=== PATIENT | female | born 1940 | race Caucasian/White ===

== ENCOUNTER 2019-04-05 11:35 | Emergency (ER) | payer OTHER ==
[2019-04-05 11:58] VITALS: BP 138/64; PULSE 69; TEMP 98.6; BMI 29.9
[2019-04-05] MEDS ORDERED: IBUPROFEN 600 MG TABLET (FP) PO ONE ×2 (12:25→12:41)
--- NOTE | 2019-04-05 13:08 | PDOC ---
History of Present Illness - General Chief Complaint: Wound Stated Complaint: WOUND Time Seen by Provider: 04/05/19 12:20 History Source: Patient Exam Limitations: No Limitations - History of Present Illness Initial Comments: 04/05/19 12:37 78-year-old female with no history of diabetes presents to ED with the painful red bump to her left lower abdomen for the past 4 days without fever, chills or drainage. Patient denies recent travel, recent illness or recent outside work. Patient denies history of MRSA or immunosuppression. Timing/Duration: reports: other (4 days) Severity: Yes: mild Location: reports: torso Respiratory Risk Factors: reports: no cause identified Associated Symptoms: reports: edema, swelling/mass/lumps. denies: fever, malaise Past History - Travel Traveled outside of the country in the last 30 days: Yes - Past Medical History Allergies/Adverse Reactions: Allergies Allergy/AdvReac Type Severity Reaction Status Date / Time No Known Allergies Allergy Verified 04/05/19 11:57 Home Medications: Ambulatory Orders Beta-Carotene(A) W-C & E [Antioxidant] 1 each PO DAILY 11/22/11 Levothyroxine [Synthroid -] 175 mcg PO DAILY 11/22/11 Multiple Vitamin 1 tab PO DAILY 11/22/11 [place]-3 Fatty Acids/Fish Oil [[facility] Fish Oil 1,200 mg Softgel] 1 each PO DAILY 23/06 Simvastatin 40 mg PO DAILY 11/22/11 clonazePAM [Klonopin -] 0.5 mg PO BID 11/22/11 Amoxicillin/Potassium Clav [Augmentin 875-125 Tablet] 1 each PO BID #14 tablet 02/21/14 Acetaminophen W/ Codeine #3 [Tylenol # 3 -] 1 tab PO Q6H PRN #20 tablet Anemia: No Asthma: No Cancer: No Cardiac Disorders: No CVA: No COPD: No CHF: No Dementia: No Diabetes: No GI Disorders: No Disorders: No HTN: Yes Hypercholesterolemia: Yes Liver Disease: No Seizures: No Thyroid Disease: Yes - Surgical History Abdominal Surgery: Yes (removal of cyst left kidney) Appendectomy: No Cardiac Surgery: No Cholecystectomy: No Lung Surgery: No Neurologic Surgery: No Orthopedic Surgery: No - Immunization History Immunization Up to Date: Yes - Psycho Social/Smoking Cessation Hx Smoking History: Never smoked Have you smoked in the past 12 months: No If you are a former smoker, when did you quit?: 25 years ago Information on smoking cessation initiated: No Hx Alcohol Use: No Drug/Substance Use Hx: No Substance Use Type: None Hx Substance Use Treatment: No Patient Lives Alone: No Lives with/in: (son) Review of Systems - Review of Systems Able to Perform ROS?: No Is the patient limited Hungarian proficient: No Constitutional: No: Symptoms Reported HEENTM: No: Symptoms Reported Respiratory: No: Symptoms reported Cardiac (ROS): No: Symptoms Reported ABD/GI: No: Symptoms Reported : No: Symptoms Reported Musculoskeletal: No: Symptoms Reported Integumentary: Yes: Erythema, Lumps Neurological: No: Symptoms reported Endocrine: No: Symptoms Reported Hematologic/Lymphatic: No: Symptoms Reported *Physical Exam - Vital Signs Last Vital Signs Temp Pulse Resp BP Pulse Ox 98.6 F 69 18 138/64 95 04/05/19 11:55 04/05/19 11:55 04/05/19 11:55 04/05/19 11:55 04/05/19 11:55 - Physical Exam General Appearance: Yes: Nourished, Appropriately Dressed. No: Apparent Distress Neck: negative: Supple Respiratory/Chest: positive: Lungs Clear, Normal Breath Sounds. negative: Respiratory Distress, Accessory Muscle Use Cardiovascular: positive: Regular Rhythm, Regular Rate. negative: Murmur Gastrointestinal/Abdominal: positive: Soft, Tenderness (llq ) Integumentary: positive: Erythema (raised erythematous area to llq of the abdomen. Center with scab. No palpable fluctulence or increased warmth), Swelling, Other Neurologic: negative: Motor Strength 5/5 ED Treatment Course - RADIOLOGY Radiology Studies Ordered: Category Date Time Status SOFT TISSUE ABDOMEN US [US] Stat Ultrasound 04/05/19 12:24 Ordered - Medications Given in the ED: ED Medications Discontinued Medications Generic Name Dose Route Start Last Admin Trade Name Freq PRN Reason Stop Dose Admin Ibuprofen 600 mg 04/05/19 12:25 04/05/19 12:40 Motrin - PO 04/05/19 12:26 600 mg ONCE ONE Administration Medical Decision Making - Medical Decision Making 04/05/19 13:02 Chief complaint: Left lower quadrant painful bump for the past 4 days with no other complaints no history of diabetes or immunosuppression. Exam tender erythematous raised area to left lower quadrant measuring 4 x 2" with scabs to Center Plan: wound culture obtained by the deroofing scab and expressing minimal amount of purulent fluid. An ultrasound ordered and motrin ordered 04/05/19 13:52 Pt States feeling improvement after medication. Ultrasound report pending. 04/05/19 13:57 Ultrasound shows a tiny subcutaneous mass suspicious for developing abscess measuring 5 mm depth measuring 9 x 3 x 6 mm. Patient will be discharged home with Bactrim and strict instructions was given to the son and patient. Area was marked with a permanent marker which patient is aware if area becomes red beyond the black line despite taking antibiotics to return to the emergency room for IV antibiotics Discharge - Discharge Information Problems reviewed: Yes Clinical Impression/Diagnosis: Abdominal abscess Condition: Improved Disposition: HOME - Additional Discharge Information Prescription Drug Monitoring Program (I-STOP) results: I-STOP not reviewed - Follow up/Referral Referrals: Jerrica Vences MD [Primary Care Provider] - - Patient Discharge Instructions Patient Printed Discharge Instructions: DI for Skin Abscess Additional Instructions: Take antibiotics as prescribed until completed. May take Tylenol for discomfort. Apply hot warm soaks to the affected area 4 times a day for 15 minutes of constant heat to promote drainage if any. If symptoms do not improve in area reddens beyond the circled area please return back to the ER as this requires IV antibiotics - Post Discharge Activity
== END 2019-04-05 14:21 | disposition home or self-care (01) ==
LOC: JER 11:35 → SUPCPDRO 11:35 → JER 14:21
DX: L02.211 Cutaneous abscess of abdominal wall (principal); I10 Essential (primary) hypertension; E03.9 Hypothyroidism, unspecified; E78.00 Pure hypercholesterolemia, unspecified
CPT/HCPCS: 76705-TC; 87070; 87186; 87205; 99281-25

== ENCOUNTER 2019-04-26 11:59 | Emergency (ER) | payer OTHER ==
[2019-04-26 12:11] VITALS: BMI 30.7
--- NOTE | 2019-04-26 12:11 | PDOC ---
Rapid Medical Evaluation Time Seen by Provider: 04/26/19 12:07 Medical Evaluation: Allergies Allergy/AdvReac Type Severity Reaction Status Date / Time No Known Allergies Allergy Verified 04/05/19 11:57 04/26/19 12:07 I have performed a brief in-person evaluation of this patient. The patient presents with a chief complaint of: sent by PCP Marcieanti, burning/ painful red lesion to R abdomen, denies f/c/n/v/d. Seen 04/05 for similar. Hx HTN /HLD Pertinent physical exam findings: abscess/cellulitis to R abdomen I have ordered the following: nothing The patient will proceed to the ED for further evaluation. Discharge Disposition - Diagnosis Abscess - Discharge Dispostion Condition at time of disposition: Stable - Referrals - Patient Instructions - Post Discharge Activity
--- NOTE | 2019-04-26 12:28 | PDOC ---
History of Present Illness - General Chief Complaint: Wound Stated Complaint: REDNESS TO THE AFECTED AREA Time Seen by Provider: 04/26/19 12:07 History Source: Patient Exam Limitations: Language Barrier (djiboutian) - History of Present Illness Initial Comments: 04/26/19 12:28 Suellen Rodriguez is a 78yF w PMHx gastritis, constipation, HTN, HLD, hypothyroidism, presenting w LLQ wound. Has had worsening pain/erythema/growing LLQ wound for 2 weeks. Also complaining of mild epigastric pain starting last night. Denies trauma, travel, immunosuppression, drainage. Denies alcohol, smoking, illicit drugs. Last BM today. Was seen in the ED on 04/05 for LLQ abscess measuring 4 x 2", d/c home w bactrim. Denies fever, headache, nausea/ vomiting, SOB, chest pain, urinary changes. Past History - Past Medical History Allergies/Adverse Reactions: Allergies Allergy/AdvReac Type Severity Reaction Status Date / Time No Known Allergies Allergy Verified 04/05/19 11:57 Home Medications: Ambulatory Orders Beta-Carotene(A) W-C & E [Antioxidant] 1 each PO DAILY 11/22/11 Levothyroxine [Synthroid -] 175 mcg PO DAILY 11/22/11 Multiple Vitamin 1 tab PO DAILY 11/22/11 [place]-3 Fatty Acids/Fish Oil [[facility] Fish Oil 1,200 mg Softgel] 1 each PO DAILY 23/06 Simvastatin 40 mg PO DAILY 11/22/11 clonazePAM [Klonopin -] 0.5 mg PO BID 11/22/11 Amoxicillin/Potassium Clav [Augmentin 875-125 Tablet] 1 each PO BID #14 tablet 02/21/14 Acetaminophen W/ Codeine #3 [Tylenol # 3 -] 1 tab PO Q6H PRN #20 tablet Sulfamethoxazole/Trimethoprim [Bactrim Ds -] 1 tab PO BID #14 tablet 04/05/19 Sulfamethoxazole/Trimethoprim [Bactrim Ds -] 1 tab PO BID #14 tablet 04/26/19 Anemia: No Asthma: No Cancer: No Cardiac Disorders: No CVA: No COPD: No CHF: No Dementia: No Diabetes: No GI Disorders: No Disorders: No HTN: Yes Hypercholesterolemia: Yes Liver Disease: No Seizures: No Thyroid Disease: Yes - Surgical History Abdominal Surgery: Yes (removal of cyst left kidney) Appendectomy: No Cardiac Surgery: No Cholecystectomy: No Lung Surgery: No Neurologic Surgery: No Orthopedic Surgery: No - Immunization History Immunization Up to Date: Yes - Psycho Social/Smoking Cessation Hx Smoking History: Never smoked Have you smoked in the past 12 months: No If you are a former smoker, when did you quit?: 25 years ago Information on smoking cessation initiated: No Hx Alcohol Use: No Drug/Substance Use Hx: No Substance Use Type: None Hx Substance Use Treatment: No Review of Systems - Review of Systems Constitutional: No: Chills, Fever HEENTM: No: Eye Pain, Nose Pain, Throat Pain, Mouth Pain Respiratory: No: Cough, Shortness of Breath Cardiac (ROS): No: Chest Pain, Palpitations, Syncope ABD/GI: Yes: Constipated (chronic). No: Abdominal Distended, Diarrhea, Nausea, Vomiting : No: Burning, Dysuria, Discharge, Flank Pain, Hematuria Musculoskeletal: No: Back Pain, Joint Pain, Muscle Pain Integumentary: Yes: Lesions (2 lesions LLQ). No: Bruising, Flushing Neurological: No: Headache, Seizure, Tingling Psychiatric: No: Anxiety, Depression, Stressors Endocrine: No: Excessive Sweating, Flushing, Intolerance to Cold, Intolerance to Heat Hematologic/Lymphatic: No: Anemia, Blood Clots, Easy Bleeding *Physical Exam - Vital Signs Last Vital Signs Temp Pulse Resp BP Pulse Ox 98.5 F 74 16 174/69 H 96 04/26/19 12:08 04/26/19 12:08 04/26/19 12:08 04/26/19 12:08 04/26/19 12:08 - Physical Exam General Appearance: Yes: Nourished, Appropriately Dressed. No: Apparent Distress HEENT: positive: EOMI, JAVON, Normal Voice, Hearing Grossly Normal. negative: Scleral Icterus (R), Scleral Icterus (L), Nasal Congestion, Rhinorrhea Respiratory/Chest: positive: Lungs Clear, Normal Breath Sounds. negative: Chest Tender, Respiratory Distress, Crackles, Rales, Rhonchi, Stridor, Wheezing Cardiovascular: positive: Regular Rhythm, Regular Rate, S1, S2. negative: Edema , Murmur Gastrointestinal/Abdominal: positive: Normal Bowel Sounds, Tender (mild tenderness epigastric, LLQ over wound), Flat, Soft, Other (LLQ: 10x4cm warm/ erythematous/non-purulent or fluctuant wound w scab center, 6x2cm healed wound lateral to previous wound). negative: Organomegaly, Distended, Guarding, Rebound Musculoskeletal: negative: CVA Tenderness (R), CVA Tenderness (L) Extremity: positive: Normal Capillary Refill Integumentary: positive: Normal Color Neurologic: positive: Fully Oriented, Alert, Normal Response, Responsive. negative: Sensory Deficit, Confused, Disoriented ED Treatment Course - LABORATORY CBC & Chemistry Diagram: 04/26/19 13:24 04/26/19 13:24 Medical Decision Making - Medical Decision Making 04/26/19 13:00 CBC CMP trop lipase UA EKG CXR pepcid maalox tylenol for pain Bedside US shows 1x0.3cm fluid collection CXR shows clear lung devries EKG shows NSR, HR 68, QTc 433, no ST changes CBC CMP UA lipase normal, trop neg --- Suellen Rodriguez is a 78yF w PMHx gastritis, constipation, HTN, HLD, hypothyroidism, presenting w 2 week LLQ wound and 1d epigastric pain. Epigastric pain d/t gastritis vs reflux. No evidence of ACS (neg trop, NSR EKG) . LLQ wound ultrasound shows 1x0.3cm fluid collection, not big enough to be drained in ED. Afebrile. Last month wound culture grew staph aureus, susceptible to bactrim. Given pepcid maalox tylenol for pain. Given 1 dose bactrim. D/c home for abscess w Ds bactrim BID x7d (prior cultures grew s. aureus, susceptible to bactrim) and PCP f/u Discharge - Discharge Information Problems reviewed: Yes Clinical Impression/Diagnosis: Abscess, Epigastric pain Condition: Good Disposition: HOME - Admission No - Additional Discharge Information Prescriptions: Sulfamethoxazole/Trimethoprim [Bactrim Ds -] 1 tab PO BID #14 tablet - Follow up/Referral Referrals: Andie Altamirano MD [Primary Care Provider] - - Patient Discharge Instructions Patient Printed Discharge Instructions: DI for Skin Abscess Additional Instructions: You were seen for abdominal wound. Your labs and imaging do not show anything concerning. You were given antibiotics for your abscess. Please make an appointment with your primary care doctor regarding your wound. Take your prescribed Bactrim as directed on packaging. Come back to the ED if you have worsening infection, fever, or vomiting. - Post Discharge Activity
[2019-04-26] MEDS ORDERED: MAG HYDROX/AL HYDROX/SIMETH -MYLANTA- ORAL SUSPENSION PO ONE (12:44)
[2019-04-26] MEDS ORDERED: FAMOTIDINE 20 MG/50 ML IVPB 20 MG/50 ML MG IVPB ONE ×2 (12:44→14:32)
[2019-04-26] MEDS ORDERED: ACETAMINOPHEN 1000 MG/100 ML VIAL (NON FORMULARY) IVPB ONE (12:44)
[2019-04-26] MEDS ORDERED: MAG HYDROX/AL HYDROX/SIMETH 30 ML UNIT-DOSE CUP ONE (12:58)
[2019-04-26] MEDS ORDERED: ACETAMINOPHEN INJECTION 100 ML IVPB ONE (12:58)
[2019-04-26 13:34] LABS: BASO % 1.3 % (0-2.0); EOS % 1.7 % (0-4.5); HEMATOCRIT 40.1 % (32.4-45.2); HEMOGLOBIN 13.3 GM/dL (10.7-15.3); LYMPH % 27.8 % (8-40); MCHC 33.2 g/dl (32.0-36.0); MEAN CELL VOLUME 90.2 fl (80-96); MEAN PLT VOLUME 8.2 fl (7.5-11.1); MONO % 5.3 % (3.8-10.2); NEUT % 63.9 % (42.8-82.8); PLATELET COUNT 299 K/MM3 (134-434); RBC 4.45 M/mm3 (3.60-5.2); RDW 13.7 % (11.6-15.6); WHITE BLOOD COUNT 8.8 K/mm3 (4.0-10.0)
[2019-04-26 13:58] VITALS: BP 186/82; PULSE 68; TEMP 98.4
[2019-04-26 14:09] LABS: LIPASE 124 U/L (73-393)
[2019-04-26 14:14] LABS: ALBUMIN 4.1 g/dl (3.4-5.0); BILIRUBIN,TOTAL 0.4 mg/dL (0.2-1); BLOOD UREA NITROGEN 16.7 mg/dL (7-18); CALCIUM 9.7 mg/dL (8.5-10.1); CREATININE 0.6 mg/dL (0.55-1.3); POTASSIUM 4.8 mmol/L (3.5-5.1); TOT PROT 7.7 g/dl (6.4-8.2)
[2019-04-26 14:37] LABS: URINE APPEARANCE CLEAR; URINE BILIRUBIN NEGATIVE (NEGATIVE); URINE COLOR YELLOW; URINE GLUCOSE (UA) NEGATIVE (NEGATIVE); URINE KETONE NEGATIVE (NEGATIVE); URINE LEUK ESTERASE NEGATIVE (NEGATIVE); URINE NITRITE NEGATIVE (NEGATIVE); URINE PROTEIN NEGATIVE (NEGATIVE)
[2019-04-26] MEDS ORDERED: SULFAMETHOXAZOLE/TRIMETHOPRIM 800MG/160MG D.S. TABLET PO ONE (15:11)
[2019-04-26] MEDS ORDERED: SULFAMETHOXAZOLE/TRIMETHOPRIM 800MG/160MG D.S. TABLET ONE (15:19)
--- NOTE | 2019-04-26 15:20 | PDOC ---
Documentation entered by Cyndee Villanueva SCRIBE, acting as scribe for Balaji Beebe MD. Balaji Beebe MD: This documentation has been prepared by the Kay osn Adrianna, SCRIBE, under my direction and personally reviewed by me in its entirety. I confirm that the documentation accurately reflects all work, treatment, procedures, and medical decision making performed by me. Attending Attestation - Resident Resident Name: Ector Barry (]) - ED Attending Attestation I have performed the following: I have examined & evaluated the patient, The case was reviewed & discussed with the resident, I agree w/resident's findings & plan - HPI HPI: 04/26/19 15:17 78-year-old female history of hypertension, hypothyroidism, nondiabetic presents with second episode of left abdominal pimple/cellulitis. No fevers or chills, had initial lesion about 1 month ago which was treated with Bactrim successfully, now with second lesion that developed about 2 weeks ago with progressive redness and itching and discomfort. No fevers or chills, no drainage, no other complaints. - Physicial Exam PE: 04/26/19 15:17 Vital signs stable Blood pressure slightly elevated Heart is regular, lungs are clear, abdomen is soft/nontender/nondistended Along left lower abdominal wall, there is a 4 mm area of induration with a healed scab, and additional 8 to 10 cm of superficial cellulitis and warmth, slight tenderness to palpation, no active discharge. Bedside ultrasound shows no fluid pocket that is drainable. - Medical Decision Making 04/26/19 15:18 78-year-old female with Abdominal wall cellulitis and induration, no drainable abscess at this time. No systemic symptoms or signs, abdominal exam is benign. Labs are within normal limits EKG is normal Trial of oral antibiotics, strict return criteria regarding indications for incision and drainage and abscess development. Heart Score/ECG Review #1 ECG reviewed & interpreted by me at: 13:40 General ECG Interpretation: Sinus Rhythm, Normal Rate (68), Normal Intervals ( qtc 433, LVH), No acute ischemic changes
--- NOTE | 2019-04-27 12:55 | EKG ---
Test Reason : Blood Pressure : / mmHG Vent. Rate : 068 BPM Atrial Rate : 068 BPM P-R Int : 172 ms QRS Dur : 076 ms QT Int : 408 ms P-R-T Axes : 051 049 058 degrees QTc Int : 433 ms POOR DATA QUALITY, INTERPRETATION MAY BE ADVERSELY AFFECTED NORMAL SINUS RHYTHM MINIMAL VOLTAGE CRITERIA FOR LVH, MAY BE NORMAL VARIANT WHEN COMPARED WITH ECG OF 24-SEP-2017 20:45, NONSPECIFIC T WAVE ABNORMALITY NO LONGER EVIDENT IN ANTERIOR LEADS Confirmed by JOSE MENDEZ MD ([id number]) on 04/27/2019 12:55:00 PM Referred By: Confirmed By:JOSE MENDEZ MD
== END 2019-04-26 15:41 | disposition home or self-care (01) ==
LOC: JER 11:59
PROC: 3E033GC Introduction of Other Therapeutic Substance into Peripheral Vein, Percutaneous Approach (ICD-10-PCS; principal; 2019-04-26)
PROC: 3E033NZ Introduction of Analgesics, Hypnotics, Sedatives into Peripheral Vein, Percutaneous Approach (ICD-10-PCS; 2019-04-26)
PROC: BH49ZZZ Ultrasonography of Abdominal Wall (ICD-10-PCS; 2019-04-26)
DX: L02.211 Cutaneous abscess of abdominal wall (principal); R10.13 Epigastric pain; I10 Essential (primary) hypertension; E78.5 Hyperlipidemia, unspecified; E03.9 Hypothyroidism, unspecified
CPT/HCPCS: 36415; 71046-TC-FY; 80053; 81003; 82550; 83690; 84484; 85025; 87040; 87086; 93005; 93010; 99284-25; J0131

== ENCOUNTER 2019-05-12 13:02 | Emergency (ER) | payer OTHER ==
[2019-05-12 13:13] VITALS: BP 148/68; PULSE 74; TEMP 98.8; BMI 28.9
--- NOTE | 2019-05-12 14:25 | PDOC ---
History of Present Illness - General History Source: Patient, Family Exam Limitations: No Limitations <Marla Soto - Last Filed: 05/12/19 14:57> <Isabela Bolanos - Last Filed: 05/12/19 18:09> - General Chief Complaint: Wound Stated Complaint: WOUND INFECTION Time Seen by Provider: 05/12/19 13:10 Past History - Travel Traveled outside of the country in the last 30 days: No Close contact w/someone who was outside of country & ill: No - Past Medical History Anemia: No Asthma: No Cancer: No Cardiac Disorders: No CVA: No COPD: No CHF: No Dementia: No Diabetes: No GI Disorders: No Disorders: No HTN: Yes Hypercholesterolemia: Yes Liver Disease: No Seizures: No Thyroid Disease: Yes - Surgical History Abdominal Surgery: Yes (removal of cyst left kidney) Appendectomy: No Cardiac Surgery: No Cholecystectomy: No Lung Surgery: No Neurologic Surgery: No Orthopedic Surgery: No - Immunization History Immunization Up to Date: Yes - Psycho Social/Smoking Cessation Hx Smoking History: Never smoked Have you smoked in the past 12 months: No If you are a former smoker, when did you quit?: 25 years ago Hx Alcohol Use: No Drug/Substance Use Hx: No Substance Use Type: None Hx Substance Use Treatment: No <Marla Soto - Last Filed: 05/12/19 14:57> <Isabela Bolanos - Last Filed: 05/12/19 18:09> - Past Medical History Allergies/Adverse Reactions: Allergies Allergy/AdvReac Type Severity Reaction Status Date / Time No Known Allergies Allergy Verified 05/12/19 13:08 Home Medications: Ambulatory Orders Beta-Carotene(A) W-C & E [Antioxidant] 1 each PO DAILY 11/22/11 Levothyroxine [Synthroid -] 175 mcg PO DAILY 11/22/11 Multiple Vitamin 1 tab PO DAILY 11/22/11 Rosanky-3 Fatty Acids/Fish Oil [[facility] Fish Oil 1,200 mg Softgel] 1 each PO DAILY 23/06 Simvastatin 40 mg PO DAILY 11/22/11 clonazePAM [Klonopin -] 0.5 mg PO BID 11/22/11 Amoxicillin/Potassium Clav [Augmentin 875-125 Tablet] 1 each PO BID #14 tablet 02/21/14 Acetaminophen W/ Codeine #3 [Tylenol # 3 -] 1 tab PO Q6H PRN #20 tablet Sulfamethoxazole/Trimethoprim [Bactrim Ds -] 1 tab PO BID #14 tablet 04/05/19 Sulfamethoxazole/Trimethoprim [Bactrim Ds -] 1 tab PO BID #14 tablet 04/26/19 Review of Systems - Review of Systems Able to Perform ROS?: Yes Comments:: 05/12/19 14:57 CONSTITUTIONAL: Absent: fever, chills, diaphoresis, generalized weakness, malaise, loss of appetite HEENT: Absent: rhinorrhea, nasal congestion, throat pain, throat swelling, difficulty swallowing, mouth swelling, ear pain, eye pain, visual Changes CARDIOVASCULAR: Absent: chest pain, loss of consciousness, palpitations, irregular heart rate, peripheral edema RESPIRATORY: Absent: cough, shortness of breath, dyspnea with exertion, orthopnea, wheezing, stridor, hemoptysis GASTROINTESTINAL: Absent: abdominal pain, abdominal distension, nausea, vomiting, diarrhea, constipation, melena, hematochezia GENITOURINARY: Absent: dysuria, frequency, urgency, hesitancy, hematuria, flank pain, genital pain MUSCULOSKELETAL: Absent: myalgia, arthralgia, joint swelling SKIN: Present: abdominal wound Absent: rash, itching, pallor HEMATOLOGIC/IMMUNOLOGIC: Absent: easy bleeding, easy bruising, lymphadenopathy, frequent infections ENDOCRINE: Absent: unexplained weight gain, unexplained weight loss, heat intolerance, cold intolerance NEUROLOGIC: Absent: headache, focal weakness or paresthesias, dizziness, unsteady gait, seizure, mental status changes, bladder or bowel incontinence PSYCHIATRIC: Absent: anxiety, depression, suicidal or homicidal ideation, hallucinations. Is the patient limited [place] proficient: No <Marla Soto - Last Filed: 05/12/19 14:57> *Physical Exam - Vital Signs Last Vital Signs Temp Pulse Resp BP Pulse Ox 98.8 F 74 18 148/68 95 05/12/19 13:09 05/12/19 13:09 05/12/19 13:09 05/12/19 13:09 05/12/19 13:09 - Physical Exam Comments: 05/12/19 15:01 GENERAL: Well developed, well nourished. Awake and alert. No acute distress. HEENT: Normocephalic, atraumatic. PERRLA, EOMI. No conjunctival pallor. Sclera are non- icteric. Moist mucous membranes. Oropharynx is clear. NECK: Supple. Full ROM. No JVD. Carotid pulses 2+ and symmetric, without bruits. No thyromegaly. No lymphadenopathy. CARDIOVASCULAR: Regular rate and rhythm. No murmurs, rubs, or gallops. Distal pulses are 2+ and symmetric. PULMONARY: No evidence of respiratory distress. Lungs clear to auscultation bilaterally. No wheezing, rales or rhonchi. ABDOMINAL: Soft. Non-tender. Non-distended. No rebound or guarding. No organomegaly. Normoactive bowel sounds. MUSCULOSKELETAL Normal range of motion at all joints. No bony deformities or tenderness. No CVA tenderness. EXTREMITIES: No cyanosis. No clubbing. No edema. No calf tenderness. SKIN: 2 x 3 ovoid shaped wounds with eschar tissue, minimal purulent drainage noted. No active cellulitis at this time, skin changes noted to be more brown in nature. Warm and dry. Normal capillary refill. No jaundice. NEUROLOGICAL: Alert, awake, appropriate. Cranial nerves 2-12 intact. No deficits to light touch and temperature in face, upper extremities and lower extremities. No motor deficits in the in face, upper extremities and lower extremities. Normoreflexic in the upper and lower extremities. Normal speech. Toes are down- going bilaterally. Gait is normal without ataxia. PSYCHIATRIC: Cooperative. Good eye contact. Appropriate mood and affect. <Marla Soto - Last Filed: 05/12/19 14:57> - Vital Signs Last Vital Signs Temp Pulse Resp BP Pulse Ox 98.8 F 74 18 148/68 95 05/12/19 13:09 05/12/19 13:09 05/12/19 13:09 05/12/19 13:09 05/12/19 13:09 <Isabela Bolanos - Last Filed: 05/12/19 18:09> Medical Decision Making - Medical Decision Making 05/12/19 15:02 The patient is a 78-year-old female with past medical history of hypothyroidism , hypertension presents to the ER for evaluation of her abdominal wound. She states is been going on for approximately 1 month. She states that there was an abscess over that location previously. She is concerned that it is getting worse at this time. Denies fevers, diabetes history, nausea, vomiting and redness around the site. She is currently on Bactrim, which the bacteria is sensitive to per the last culture. A/P: Abdominal wound On exam patient with a 2 x 3 ovoid shaped wound to the left lower quadrant, minimal purulent drainage noted, white eschar coating the wound. Pocus soft tissue abdomen performed. Some cobblestoning noted, no obvious collection suggestive of abscess Skin with vascular changes however no active cellulitis. Encourage patient to continue her Bactrim. She states she is a follow-up with a surgeon on 05/18/2019. Strict return precautions given Discharge home with wound care instructions I discussed the physical exam findings, ancillary test results and final diagnoses with the patient. I answered all of the patient's questions. The patient was satisfied with the care received and felt comfortable with the discharge plan and treatment plan. The Patient agrees to follow up with the primary care physician/specialist within 24-72 hours. Return precautions were given. <Marla Soto - Last Filed: 05/12/19 14:57> - Medical Decision Making agree with PA assessment and plan, history and physical exam as documented. I was present for the ultrasound, soft tissue of left lower abdomen, small area of hypoechoic fluid, not drainable abscess, c/w cellulitis. see documentation wound cultures staph mssa, on bactrim, told to continue. surgeon followup in 1 week. 05/12/19 18:08 <Isabela Bolanos - Last Filed: 05/12/19 18:09> Discharge - Discharge Information Problems reviewed: Yes - Admission No <Marla Soto - Last Filed: 05/12/19 14:57> <Isabela Bolanos - Last Filed: 05/12/19 18:09> - Discharge Information Clinical Impression/Diagnosis: Chronic abdominal wound infection Qualifiers: Encounter type: initial encounter Qualified Code(s): S31.109A - Unspecified open wound of abdominal wall, unspecified quadrant without penetration into peritoneal cavity, initial encounter Condition: Stable Disposition: HOME - Follow up/Referral Referrals: Andie Altamirano MD [Primary Care Provider] - - Patient Discharge Instructions Patient Printed Discharge Instructions: DI for Wound Infection Additional Instructions: You were evaluated for your wound infection today; it does not appear immediately infected. Continue taking the bactrim as prescribed Keep your appointment with the surgeon for the 8th Keep the area clean and dry Return to the ER for fever, increased pain, vomiting, or if you have any changes in your symptoms Usted fue evaluado por cortez infeccin de la herida hoy; no aparece infectado de inmediato. Contine tomando el bactrim segn lo prescrito. Asista a cortez stuart con el cirujano el da 8. Mantenga el florencio limpia y seca. Regrese a la ingrid de emergencias por fiebre, aumento del dolor, vmitos o si tiene algn cambio en manuel sntomas. Print Language: ARMENIAN - Post Discharge Activity
== END 2019-05-12 14:41 | disposition home or self-care (01) ==
LOC: JER 13:02
DX: S31.104D Unspecified open wound of abdominal wall, left lower quadrant without penetration into peritoneal cavity, subsequent encounter (principal); Z79.2 Long term (current) use of antibiotics; I10 Essential (primary) hypertension; E78.5 Hyperlipidemia, unspecified; E78.00 Pure hypercholesterolemia, unspecified; E03.9 Hypothyroidism, unspecified; X58.XXXD Exposure to other specified factors, subsequent encounter
CPT/HCPCS: 76705-TC; 99282-25

== ENCOUNTER 2020-11-05 23:53 | Observation (INO) | payer OTHER ==
[2020-11-06] MEDS ORDERED: ASPIRIN 81 MG CHEWABLE TABLETS PO ONE (00:21)
[2020-11-06 00:29] VITALS: BMI 29.2
[2020-11-06] MEDS ORDERED: ASPIRIN 81 MG CHEWABLE TABLETS ONE (00:31)
[2020-11-06 01:02] LABS: BASO % 0.4 % (0-2.0); EOS % 0.9 % (0-4.5); HEMATOCRIT 38.6 % (32.4-45.2); HEMOGLOBIN 12.9 GM/dL (10.7-15.3); LYMPH % 40.4 % (8-40); MCHC 33.6 g/dl (32.0-36.0); MEAN CELL VOLUME 89.5 fl (80-96); MEAN PLT VOLUME 8.2 fl (7.5-11.1); MONO % 6.2 % (3.8-10.2); NEUT % 52.1 % (42.8-82.8); PLATELET COUNT 280 K/MM3 (134-434); RBC 4.31 M/mm3 (3.60-5.2); RDW 13.8 % (11.6-15.6); WHITE BLOOD COUNT 8.4 K/mm3 (4.0-10.0)
[2020-11-06 01:10] LABS: INR 0.97 (0.83-1.09); PROTHROMBIN TIME (PATIENT) 11.9 SEC (9.7-13.0)
[2020-11-06 01:17] LABS: CHLORIDE 108 mmol/L (98-107); SODIUM 140 mmol/L (136-145)
[2020-11-06 01:19] LABS: CALCIUM 9.2 mg/dL (8.5-10.1)
[2020-11-06 01:21] LABS: ANION GAP 6 MMOL/L (8-16); BLOOD UREA NITROGEN 20.6 mg/dL (7-18); CO2 26 mmol/L (21-32); GLUCOSE,RANDOM 99 mg/dL (74-106); MAGNESIUM 2.6 mg/dL (1.8-2.4)
[2020-11-06 01:24] LABS: BILIRUBIN,TOTAL 0.4 mg/dL (0.2-1); CREATININE 0.9 mg/dL (0.55-1.3); SGOT/AST 20 U/L (15-37); SGPT/ALT 24 U/L (13-61)
[2020-11-06 01:26] LABS: ALK PHOS 81 U/L (45-117); TOT PROT 7.6 g/dl (6.4-8.2)
[2020-11-06 02:36] LABS: EPI CELLS 3 /uL (0-25.1); HYALINE CASTS 0 /uL (0-3.1); PH,URINE 5.5 (5.0-8.0); URINE APPEARANCE CLEAR; URINE BACTERIA 4 /uL (0-1359); URINE BILIRUBIN NEGATIVE (NEGATIVE); URINE COLOR YELLOW; URINE GLUCOSE (UA) NEGATIVE (NEGATIVE); URINE KETONE NEGATIVE (NEGATIVE); URINE LEUK ESTERASE TRACE (NEGATIVE); URINE NITRITE NEGATIVE (NEGATIVE); URINE PROTEIN NEGATIVE (NEGATIVE); URINE RBC 3 /uL (0-23.9); URINE UROBILINOGEN 0.2 mg/dL (0.2-1.0); URINE WBC 16 /uL (0-25.8)
[2020-11-06] MEDS ORDERED: TETRAHYDROZOLINE HCL EYE DROPS OD PRN (04:17)
[2020-11-06] MEDS ORDERED: SODIUM CHLORIDE 1,000 ML IV SCH (04:30)
[2020-11-06] MEDS ORDERED: ARTIFICIAL TEARS (POLYVINYL ALCOHOL) OPTH DROPS OU PRN (05:06)
[2020-11-06] MEDS ORDERED: GABAPENTIN 100 MG CAPSULE ONE ×2 (06:03→14:26)
[2020-11-06] MEDS: GABAPENTIN 100 MG CAPSULE PO SCH ×2 (06:15→14:30)
[2020-11-06 06:41] LABS: HEMATOCRIT 38.7 % (32.4-45.2); MCH 30.3 pg (25.7-33.7); MCHC 33.7 g/dl (32.0-36.0); MEAN CELL VOLUME 89.8 fl (80-96); MEAN PLT VOLUME 8.2 fl (7.5-11.1); PLATELET COUNT 261 K/MM3 (134-434); WHITE BLOOD COUNT 7.8 K/mm3 (4.0-10.0)
[2020-11-06] MEDS ORDERED: LEVOTHYROXINE NA 112 MCG TABLET (FP) PO SCH (07:00)
[2020-11-06 07:04] LABS: CHLORIDE 108 mmol/L (98-107); SODIUM 140 mmol/L (136-145)
[2020-11-06 07:06] LABS: ANION GAP 4 MMOL/L (8-16); BLOOD UREA NITROGEN 15.8 mg/dL (7-18); CALCIUM 9.4 mg/dL (8.5-10.1); CHOLESTEROL 228 mg/dL (50-200); CO2 28 mmol/L (21-32); GLUCOSE,RANDOM 108 mg/dL (74-106); MAGNESIUM 2.6 mg/dL (1.8-2.4)
[2020-11-06 07:08] LABS: LDL CHOLESTEROL (ONLY SJRH) 138 mg/dL (5-100); TRIGLYCERIDES 76 mg/dL (0-150)
[2020-11-06 07:10] LABS: CREATININE 0.6 mg/dL (0.55-1.3); HDL CHOLESTEROL 65 mg/dL (40-60); PHOSPHOROUS 3.5 mg/dL (2.5-4.9)
[2020-11-06] MEDS ORDERED: ASPIRIN COATED 81 MG TABLET.EC ONE (09:21)
[2020-11-06] MEDS ORDERED: LISINOPRIL 5 MG TABLET ONE (09:22)
[2020-11-06] MEDS ORDERED: ENOXAPARIN NA (PORCINE) 40 MG/0.4 ML DISP.SYRIN SQ ONE (09:22)
[2020-11-06] MEDS ORDERED: PANTOPRAZOLE 40 MG TABLET ONE (09:23)
[2020-11-06] MEDS ORDERED: ASPIRIN 81 MG CHEWABLE TABLETS PO SCH (10:00)
[2020-11-06] MEDS ORDERED: ENOXAPARIN NA (PORCINE) 40 MG/0.4 ML DISP.SYRIN SQ SCH (10:00)
[2020-11-06] MEDS ORDERED: LISINOPRIL 5 MG TABLET PO SCH (10:00)
[2020-11-06] MEDS ORDERED: PANTOPRAZOLE 40 MG TABLET PO SCH (10:00)
[2020-11-06 15:44] VITALS: BP 138/82; PULSE 77; TEMP 98.4
[2020-11-06] MEDS ORDERED: ATORVASTATIN CA 20 MG TABLET (FP) PO SCH (22:00)
== END 2020-11-06 15:20 | disposition home or self-care (01) ==
LOC: JER 23:53 → JERBED 11-06 02:01 → INTOOBSV 11-06 02:01
PROVIDERS: ADMIT Internal Medicine; ATTEND Student in an Organized Health Care Education/Training Program
PROC: 3E023GC Introduction of Other Therapeutic Substance into Muscle, Percutaneous Approach (ICD-10-PCS; principal; 2020-11-06)
PROC: 3E0337Z Introduction of Electrolytic and Water Balance Substance into Peripheral Vein, Percutaneous Approach (ICD-10-PCS; 2020-11-06)
DX: I10 Essential (primary) hypertension (principal); J45.909 Unspecified asthma, uncomplicated; E78.5 Hyperlipidemia, unspecified; E03.9 Hypothyroidism, unspecified; R07.89 Other chest pain; K29.70 Gastritis, unspecified, without bleeding; R00.2 Palpitations; R22.40 Localized swelling, mass and lump, unspecified lower limb; E66.3 Overweight; Z68.29 Body mass index [BMI] 29.0-29.9, adult; Z29.9 Encounter for prophylactic measures, unspecified; H40.9 Unspecified glaucoma; L29.9 Pruritus, unspecified; R55 Syncope and collapse; R63.0 Anorexia
CPT/HCPCS: 36415; 71046-TC-FY; 80048; 80053; 80061; 81003; 82550; 83036; 83721; 83735; 84100; 84443; 84484; 85025; 85027; 85610; 86038; 86235; 86431; 93005; 93010; 96360; 96372; 97116-GP; 97161-GP; 99285-25; C9803; G0378; U0003; U0005

== ENCOUNTER 2020-11-13 23:59 | Emergency (ER) | payer OTHER ==
[2020-11-14 00:16] VITALS: BMI 29.2
[2020-11-14] MEDS ORDERED: FAMOTIDINE 20 MG/50 ML IVPB 20 MG/50 ML MG IVPB ONE ×2 (01:01→01:33)
[2020-11-14] MEDS ORDERED: MAG HYDROX/AL HYDROX/SIMETH 30 ML UNIT-DOSE CUP PO ONE (01:01)
[2020-11-14] MEDS ORDERED: ACETAMINOPHEN 325 MG TABLET (FP) PO ONE (01:01)
[2020-11-14] MEDS ORDERED: MAG HYDROX/AL HYDROX/SIMETH 30 ML UNIT-DOSE CUP ONE (01:33)
[2020-11-14] MEDS ORDERED: ACETAMINOPHEN 325 MG TABLET (FP) ONE (01:33)
[2020-11-14 02:13] LABS: BASO % 0.5 % (0-2.0); EOS % 0.6 % (0-4.5); HEMATOCRIT 38.3 % (32.4-45.2); HEMOGLOBIN 13.2 GM/dL (10.7-15.3); LYMPH % 36.4 % (8-40); MCH 30.8 pg (25.7-33.7); MCHC 34.5 g/dl (32.0-36.0); MEAN CELL VOLUME 89.3 fl (80-96); MEAN PLT VOLUME 8.2 fl (7.5-11.1); MONO % 6.4 % (3.8-10.2); NEUT % 56.1 % (42.8-82.8); PLATELET COUNT 302 K/MM3 (134-434); RBC 4.28 M/mm3 (3.60-5.2); RDW 13.8 % (11.6-15.6); WHITE BLOOD COUNT 8.8 K/mm3 (4.0-10.0)
[2020-11-14 02:27] LABS: CHLORIDE 107 mmol/L (98-107); SODIUM 140 mmol/L (136-145)
[2020-11-14 02:30] LABS: CALCIUM 8.9 mg/dL (8.5-10.1)
[2020-11-14 02:31] LABS: ALBUMIN 4.2 g/dl (3.4-5.0); ANION GAP 8 MMOL/L (8-16); BLOOD UREA NITROGEN 18.2 mg/dL (7-18); CO2 26 mmol/L (21-32); GLUCOSE,RANDOM 107 mg/dL (74-106); LIPASE 143 U/L (73-393)
[2020-11-14 02:32] LABS: CREATININE 0.6 mg/dL (0.55-1.3); SGOT/AST 23 U/L (15-37); SGPT/ALT 26 U/L (13-61)
[2020-11-14 02:34] LABS: BILIRUBIN,TOTAL 0.4 mg/dL (0.2-1); TOT PROT 7.5 g/dl (6.4-8.2)
[2020-11-14 02:35] LABS: ALK PHOS 84 U/L (45-117)
[2020-11-14] MEDS ORDERED: LIDOCAINE VISCOUS 2% ORAL/TOP 20 ML UNIT-DOSE CUP MM ONE (03:39)
[2020-11-14] MEDS ORDERED: MAG HYDROX/ALH/SMC/DPHA/LIDO 240 ML MOUTHWASH MM ONE (03:40)
[2020-11-14] MEDS ORDERED: LIDOCAINE VISCOUS 2% ORAL/TOP 20 ML UNIT-DOSE CUP ONE (03:56)
[2020-11-14 07:46] VITALS: BP 152/98; PULSE 69; TEMP 98.1
== END 2020-11-14 08:40 | disposition home or self-care (01) ==
LOC: JER 23:59
PROC: 3E033NZ Introduction of Analgesics, Hypnotics, Sedatives into Peripheral Vein, Percutaneous Approach (ICD-10-PCS; principal; 2020-11-14)
DX: R07.9 Chest pain, unspecified (principal)
CPT/HCPCS: 36415; 71045-TC-FY; 80053; 83690; 84484; 85025; 93005; 93010; 99285-25

== ENCOUNTER 2021-03-30 21:04 | Inpatient (IN) | payer OTHER ==
[2021-03-30] MEDS ORDERED: SODIUM CHLORIDE 0.9% 500 ML INFUS.BAG IV ONE (22:52)
[2021-03-30] MEDS ORDERED: ACETAMINOPHEN 1000 MG/100 ML VIAL (NON FORMULARY) IVPB ONE (22:52)
[2021-03-30] MEDS ORDERED: ACETAMINOPHEN INJECTION 100 ML IVPB ONE (23:01)
[2021-03-30 23:31] LABS: BASO % 0.2 % (0-2.0); EOS % 0.6 % (0-4.5); HEMATOCRIT 41.3 % (32.4-45.2); LYMPH % 27.3 % (8-40); MCH 29.9 pg (25.7-33.7); MCHC 33.8 g/dl (32.0-36.0); MEAN CELL VOLUME 88.6 fl (80-96); MEAN PLT VOLUME 7.4 fl (7.5-11.1); MONO % 6.1 % (3.8-10.2); NEUT % 65.8 % (42.8-82.8); PLATELET COUNT 328 10^3/uL (134-434); RBC 4.66 M/mm3 (3.60-5.2); WHITE BLOOD COUNT 12.3 K/mm3 (4.0-10.0)
[2021-03-30 23:53] LABS: CHLORIDE 104 mmol/L (98-107); SODIUM 141 mmol/L (136-145)
[2021-03-30 23:55] LABS: CALCIUM 9.1 mg/dL (8.5-10.1)
[2021-03-30 23:56] LABS: ANION GAP 5 MMOL/L (8-16); BLOOD UREA NITROGEN 12.1 mg/dL (7-18); CO2 32 mmol/L (21-32); GLUCOSE,RANDOM 111 mg/dL (74-106); LIPASE 72 U/L (73-393)
[2021-03-30 23:59] LABS: CREATININE 0.6 mg/dL (0.55-1.3); SGOT/AST 22 U/L (15-37); SGPT/ALT 34 U/L (13-61)
[2021-03-31] LABS: BILIRUBIN,TOTAL 0.6 mg/dL (0.2-1); TOT PROT 7.9 g/dl (6.4-8.2)
[2021-03-31 00:02] LABS: ALK PHOS 82 U/L (45-117)
[2021-03-31] MEDS ORDERED: CEFTRIAXONE 1,000 MG in DEXTROSE 5%-WATER - 50 ML IVPB ONE (01:27)
[2021-03-31] MEDS ORDERED: CEFTRIAXONE 1 GM/50 ML BAG ONE (01:42)
[2021-03-31 03:20] LABS: PH,URINE 7.5 (5.0-8.0); URINE APPEARANCE CLEAR; URINE BILIRUBIN NEGATIVE (NEGATIVE); URINE COLOR YELLOW; URINE GLUCOSE (UA) NEGATIVE (NEGATIVE); URINE KETONE NEGATIVE (NEGATIVE); URINE LEUK ESTERASE NEGATIVE (NEGATIVE); URINE NITRITE NEGATIVE (NEGATIVE); URINE PROTEIN NEGATIVE (NEGATIVE); URINE UROBILINOGEN 0.2 mg/dL (0.2-1.0)
[2021-03-31] MEDS: LACTATED RINGERS SOLUTION 1,000 ML/1,000 ML INFUS.BAG IV SCH (05:09)
[2021-03-31] MEDS ORDERED: SIMETHICONE 80 MG TAB.CHEW (FP) PO PRN ×2 (05:48→08:40)
[2021-03-31] MEDS ORDERED: ARTIFICIAL TEARS (POLYVINYL ALCOHOL) OPTH DROPS OU PRN (06:38)
[2021-03-31 07:08] LABS: BASO % 0.3 % (0-2.0); EOS % 0.6 % (0-4.5); HEMATOCRIT 39.5 % (32.4-45.2); HEMOGLOBIN 13.5 GM/dL (10.7-15.3); LYMPH % 35.5 % (8-40); MCH 30.8 pg (25.7-33.7); MCHC 34.1 g/dl (32.0-36.0); MEAN CELL VOLUME 90.1 fl (80-96); MEAN PLT VOLUME 7.9 fl (7.5-11.1); MONO % 6.1 % (3.8-10.2); NEUT % 57.5 % (42.8-82.8); PLATELET COUNT 311 10^3/uL (134-434); RBC 4.38 M/mm3 (3.60-5.2); RDW 13.9 % (11.6-15.6); WHITE BLOOD COUNT 9.8 K/mm3 (4.0-10.0)
[2021-03-31 07:27] LABS: CALCIUM 8.6 mg/dL (8.5-10.1)
[2021-03-31 07:28] LABS: ALBUMIN 3.6 g/dl (3.4-5.0); BLOOD UREA NITROGEN 10.1 mg/dL (7-18)
[2021-03-31 07:32] LABS: BILIRUBIN,TOTAL 0.7 mg/dL (0.2-1)
[2021-03-31 07:33] LABS: CREATININE 0.5 mg/dL (0.55-1.3)
[2021-03-31] MEDS: LEVOTHYROXINE NA 112 MCG TABLET (FP) PO SCH (09:00)
[2021-03-31] MEDS ORDERED: LISINOPRIL 5 MG TABLET ONE (10:28)
[2021-03-31] MEDS ORDERED: ENOXAPARIN NA (PORCINE) 40 MG/0.4 ML DISP.SYRIN SQ ONE (10:29)
[2021-03-31] MEDS ORDERED: CEFTRIAXONE 2 GM/100 ML BAG IVPB ONE (10:29)
[2021-03-31] MEDS: CEFTRIAXONE 2 GM in DEXTROSE 5%-WATER 100 ML IVPB SCH (10:56)
[2021-03-31] MEDS: LISINOPRIL 10 MG TABLET PO SCH (10:56)
[2021-03-31] MEDS: ENOXAPARIN NA (PORCINE) 40 MG/0.4 ML DISP.SYRIN SQ SCH (10:56)
[2021-03-31] MEDS ORDERED: MAG HYDROX/AL HYDROX/SIMETH 30 ML UNIT-DOSE CUP PO PRN (11:05)
[2021-03-31] MEDS ORDERED: GABAPENTIN 100 MG CAPSULE ONE (14:01)
[2021-03-31] MEDS: GABAPENTIN 100 MG CAPSULE PO SCH ×2 (14:04→23:01)
[2021-03-31] MEDS: ATORVASTATIN CA 20 MG TABLET (FP) PO SCH (23:01)
[2021-04-01 00:06] VITALS: BMI 31.6
[2021-04-01] MEDS: LACTATED RINGERS SOLUTION 1,000 ML/1,000 ML INFUS.BAG IV SCH ×2 (00:16→10:51)
[2021-04-01] MEDS: ZOLPIDEM TARTRATE 5 MG TABLET PO PRN ×2 (00:16→21:35)
[2021-04-01] MEDS: GABAPENTIN 100 MG CAPSULE PO SCH ×2 (06:05→15:12)
[2021-04-01] MEDS: LEVOTHYROXINE NA 112 MCG TABLET (FP) PO SCH (06:05)
[2021-04-01 07:31] LABS: BASO % 0.3 % (0-2.0); EOS % 1.6 % (0-4.5); HEMATOCRIT 35.8 % (32.4-45.2); HEMOGLOBIN 12.2 GM/dL (10.7-15.3); LYMPH % 39.4 % (8-40); MCH 30.9 pg (25.7-33.7); MCHC 34.3 g/dl (32.0-36.0); MEAN CELL VOLUME 90.1 fl (80-96); MEAN PLT VOLUME 7.9 fl (7.5-11.1); MONO % 6.9 % (3.8-10.2); NEUT % 51.8 % (42.8-82.8); PLATELET COUNT 287 10^3/uL (134-434); RBC 3.97 M/mm3 (3.60-5.2); RDW 13.7 % (11.6-15.6); WHITE BLOOD COUNT 7.9 K/mm3 (4.0-10.0)
[2021-04-01 08:15] LABS: ALBUMIN 3.2 g/dl (3.4-5.0); BLOOD UREA NITROGEN 7.4 mg/dL (7-18); CALCIUM 8.8 mg/dL (8.5-10.1); CHOLESTEROL 172 mg/dL (50-200); MAGNESIUM 2.5 mg/dL (1.8-2.4); TRIGLYCERIDES 71 mg/dL (0-150)
[2021-04-01 08:16] LABS: LDL CHOLESTEROL (ONLY SJRH) 92 mg/dL (5-100)
[2021-04-01 08:18] LABS: BILIRUBIN,TOTAL 0.7 mg/dL (0.2-1); HDL CHOLESTEROL 53 mg/dL (40-60); TOT PROT 6.2 g/dl (6.4-8.2)
[2021-04-01 08:19] LABS: CREATININE 0.5 mg/dL (0.55-1.3); PHOSPHOROUS 3.8 mg/dL (2.5-4.9)
[2021-04-01] MEDS: POLYETHYLENE GLYCOL (HEALTHYLAX) 3350 17 GM PACKET PO SCH (10:51)
[2021-04-01] MEDS: CEFTRIAXONE 2 GM in DEXTROSE 5%-WATER 100 ML IVPB SCH (10:52)
[2021-04-01] MEDS: ENOXAPARIN NA (PORCINE) 40 MG/0.4 ML DISP.SYRIN SQ SCH (10:52)
[2021-04-01] MEDS: LISINOPRIL 10 MG TABLET PO SCH (10:52)
[2021-04-01] MEDS ORDERED: PT OWN MED DRAWER 7, Y5N ONE (14:35)
[2021-04-01] MEDS ORDERED: PEG 3350/NA SULF BICARB CL/KCL 4000 ML SOLN.RECON PO ONE (15:00)
[2021-04-01] MEDS: ATORVASTATIN CA 20 MG TABLET (FP) PO SCH (21:35)
[2021-04-02] MEDS: ACETAMINOPHEN 325 MG TABLET (FP) PO PRN ×2 (02:58→20:43)
[2021-04-02] MEDS: LACTATED RINGERS SOLUTION 1,000 ML/1,000 ML INFUS.BAG IV SCH (05:00)
[2021-04-02] MEDS: LEVOTHYROXINE NA 112 MCG TABLET (FP) PO SCH (06:31)
[2021-04-02] MEDS ORDERED: ARTIFICIAL TEARS (POLYVINYL ALCOHOL) OPTH DROPS OU PRN (07:02)
[2021-04-02] MEDS ORDERED: LACTATED RINGERS SOLUTION 1,000 ML/1,000 ML INFUS.BAG IV SCH (07:02)
[2021-04-02] MEDS ORDERED: SIMETHICONE 80 MG TAB.CHEW (FP) PO PRN (07:02)
[2021-04-02] MEDS ORDERED: ZOLPIDEM TARTRATE 5 MG TABLET PO PRN (07:02)
[2021-04-02 07:29] LABS: BASO % 0.6 % (0-2.0); EOS % 2.6 % (0-4.5); HEMATOCRIT 37.4 % (32.4-45.2); HEMOGLOBIN 12.8 GM/dL (10.7-15.3); LYMPH % 41.1 % (8-40); MCH 30.4 pg (25.7-33.7); MCHC 34.2 g/dl (32.0-36.0); MEAN CELL VOLUME 89.1 fl (80-96); MEAN PLT VOLUME 7.8 fl (7.5-11.1); MONO % 6.6 % (3.8-10.2); NEUT % 49.1 % (42.8-82.8); PLATELET COUNT 280 10^3/uL (134-434); RBC 4.19 M/mm3 (3.60-5.2); RDW 14.1 % (11.6-15.6); WHITE BLOOD COUNT 8.3 K/mm3 (4.0-10.0)
[2021-04-02 07:55] LABS: CREATININE 0.5 mg/dL (0.55-1.3)
[2021-04-02 07:56] LABS: ALBUMIN 3.4 g/dl (3.4-5.0); BLOOD UREA NITROGEN 4.3 mg/dL (7-18); PHOSPHOROUS 2.8 mg/dL (2.5-4.9)
[2021-04-02 07:57] LABS: BILIRUBIN,TOTAL 0.3 mg/dL (0.2-1); TOT PROT 6.6 g/dl (6.4-8.2)
[2021-04-02 07:58] LABS: CALCIUM 8.8 mg/dL (8.5-10.1)
[2021-04-02 07:59] LABS: MAGNESIUM 2.2 mg/dL (1.8-2.4)
[2021-04-02] MEDS ORDERED: PEG 3350/NA SULF BICARB CL/KCL 4000 ML SOLN.RECON PO ONE (09:00)
[2021-04-02] MEDS ORDERED: DEXTROSE 5%-WATER 100 ML IVPB ONE (09:07)
[2021-04-02] MEDS: MAG HYDROX/AL HYDROX/SIMETH 30 ML UNIT-DOSE CUP PO PRN (09:25)
[2021-04-02] MEDS: POLYETHYLENE GLYCOL (HEALTHYLAX) 3350 17 GM PACKET PO SCH (09:26)
[2021-04-02] MEDS: LISINOPRIL 10 MG TABLET PO SCH (09:26)
[2021-04-02] MEDS: CEFTRIAXONE 2 GM in DEXTROSE 5%-WATER 100 ML IVPB SCH (09:26)
[2021-04-02] MEDS: SODIUM CHLORIDE IV SCH (09:27)
[2021-04-02] MEDS: ALPRAZolam 1 MG TABLET PO PRN (11:41)
[2021-04-02] MEDS: ENOXAPARIN NA (PORCINE) 40 MG/0.4 ML DISP.SYRIN SQ SCH (13:31)
[2021-04-02] MEDS ORDERED: BISACODYL 5 MG TABLET.DR (FP) PO ONE (20:00)
[2021-04-02] MEDS: ATORVASTATIN CA 20 MG TABLET (FP) PO SCH (21:45)
[2021-04-02] MEDS ORDERED: PT OWN MED DRAWER 7, Y5N ONE (22:28)
[2021-04-03] MEDS: SODIUM CHLORIDE IV SCH (02:51)
[2021-04-03] MEDS: LEVOTHYROXINE NA 112 MCG TABLET (FP) PO SCH (06:16)
[2021-04-03 08:00] LABS: BASO % 0.4 % (0-2.0); EOS % 1.9 % (0-4.5); HEMATOCRIT 37.2 % (32.4-45.2); HEMOGLOBIN 12.7 GM/dL (10.7-15.3); MCH 30.6 pg (25.7-33.7); MCHC 34.1 g/dl (32.0-36.0); MEAN CELL VOLUME 89.6 fl (80-96); MEAN PLT VOLUME 7.9 fl (7.5-11.1); MONO % 5.1 % (3.8-10.2); NEUT % 53.6 % (42.8-82.8); PLATELET COUNT 307 10^3/uL (134-434); RBC 4.16 M/mm3 (3.60-5.2); RDW 13.7 % (11.6-15.6); WHITE BLOOD COUNT 6.7 K/mm3 (4.0-10.0)
[2021-04-03 08:04] LABS: INR 1.06 (0.83-1.09)
[2021-04-03 08:18] LABS: CALCIUM 8.6 mg/dL (8.5-10.1)
[2021-04-03 08:19] LABS: BLOOD UREA NITROGEN 6.9 mg/dL (7-18); MAGNESIUM 2.1 mg/dL (1.8-2.4)
[2021-04-03 08:21] LABS: PHOSPHOROUS 3.5 mg/dL (2.5-4.9)
[2021-04-03 08:22] LABS: CREATININE 0.5 mg/dL (0.55-1.3)
[2021-04-03] MEDS ORDERED: DEXTROSE 5%-WATER 100 ML IVPB ONE (09:04)
[2021-04-03] MEDS: CEFTRIAXONE 2 GM in DEXTROSE 5%-WATER 100 ML IVPB SCH (09:37)
[2021-04-03] MEDS: LISINOPRIL 10 MG TABLET PO SCH (09:38)
[2021-04-03] MEDS: POLYETHYLENE GLYCOL (HEALTHYLAX) 3350 17 GM PACKET PO SCH (09:39)
[2021-04-03] MEDS: MAG HYDROX/AL HYDROX/SIMETH 30 ML UNIT-DOSE CUP PO PRN (21:32)
[2021-04-03] MEDS: ATORVASTATIN CA 20 MG TABLET (FP) PO SCH (21:32)
[2021-04-03] MEDS: ALPRAZolam 1 MG TABLET PO PRN (22:35)
[2021-04-04] MEDS: SODIUM CHLORIDE IV SCH ×2 (01:46→21:07)
[2021-04-04] MEDS: LEVOTHYROXINE NA 112 MCG TABLET (FP) PO SCH (06:26)
[2021-04-04 07:36] LABS: BASO % 0.5 % (0-2.0); EOS % 2.6 % (0-4.5); HEMATOCRIT 35.3 % (32.4-45.2); HEMOGLOBIN 12.3 GM/dL (10.7-15.3); LYMPH % 43.3 % (8-40); MCHC 34.7 g/dl (32.0-36.0); MEAN CELL VOLUME 89.4 fl (80-96); MONO % 6.5 % (3.8-10.2); NEUT % 47.1 % (42.8-82.8); PLATELET COUNT 275 10^3/uL (134-434); RBC 3.95 M/mm3 (3.60-5.2); RDW 13.5 % (11.6-15.6); WHITE BLOOD COUNT 7.5 K/mm3 (4.0-10.0)
[2021-04-04 07:59] LABS: CALCIUM 8.5 mg/dL (8.5-10.1)
[2021-04-04 08:00] LABS: ALBUMIN 3.2 g/dl (3.4-5.0); BLOOD UREA NITROGEN 13.6 mg/dL (7-18); MAGNESIUM 2.2 mg/dL (1.8-2.4)
[2021-04-04 08:03] LABS: CREATININE 0.6 mg/dL (0.55-1.3); PHOSPHOROUS 3.4 mg/dL (2.5-4.9)
[2021-04-04 08:05] LABS: BILIRUBIN,TOTAL 0.4 mg/dL (0.2-1); TOT PROT 6.2 g/dl (6.4-8.2)
[2021-04-04] MEDS ORDERED: DEXTROSE 5%-WATER 100 ML IVPB ONE (09:19)
[2021-04-04] MEDS: POLYETHYLENE GLYCOL (HEALTHYLAX) 3350 17 GM PACKET PO SCH (09:47)
[2021-04-04] MEDS: CEFTRIAXONE 2 GM in DEXTROSE 5%-WATER 100 ML IVPB SCH (09:48)
[2021-04-04] MEDS: LISINOPRIL 10 MG TABLET PO SCH (09:48)
[2021-04-04] MEDS: ENOXAPARIN NA (PORCINE) 40 MG/0.4 ML DISP.SYRIN SQ SCH (09:48)
[2021-04-04] MEDS ORDERED: ALPRAZolam 1 MG TABLET PO PRN (20:28)
[2021-04-04] MEDS ORDERED: ZOLPIDEM TARTRATE 5 MG TABLET PO PRN (20:28)
[2021-04-04] MEDS ORDERED: ARTIFICIAL TEARS (POLYVINYL ALCOHOL) OPTH DROPS OU PRN (20:28)
[2021-04-04] MEDS ORDERED: MAG HYDROX/AL HYDROX/SIMETH 30 ML UNIT-DOSE CUP PO PRN (20:28)
[2021-04-04] MEDS ORDERED: ATORVASTATIN CA 20 MG TABLET (FP) PO SCH (22:00)
[2021-04-05] MEDS ORDERED: ZOLPIDEM TARTRATE 5 MG TABLET PO ONE (03:11)
[2021-04-05] MEDS: SODIUM CHLORIDE IV SCH (06:01)
[2021-04-05] MEDS ORDERED: LEVOTHYROXINE NA 112 MCG TABLET (FP) PO SCH (07:00)
[2021-04-05] MEDS ORDERED: LISINOPRIL 10 MG TABLET PO SCH (10:00)
[2021-04-05] MEDS ORDERED: POLYETHYLENE GLYCOL (HEALTHYLAX) 3350 17 GM PACKET PO SCH (10:00)
[2021-04-05] MEDS: ENOXAPARIN NA (PORCINE) 40 MG/0.4 ML DISP.SYRIN SQ SCH ×2 (10:23→10:29)
[2021-04-05 10:29] VITALS: BP 100/72; PULSE 76; TEMP 98.8
== END 2021-04-05 14:55 | disposition home or self-care (01) | DRG 394 ==
LOC: JER 21:04 → JERBED 03-31 02:55 → J4W 03-31 22:34 → J8W 04-04 20:06
PROVIDERS: ADMIT Internal Medicine; ATTEND Internal Medicine
PROC: 0DBL8ZX Excision of Transverse Colon, Via Natural or Artificial Opening Endoscopic, Diagnostic (ICD-10-PCS; 2021-04-03)
PROC: 0DBE8ZX Excision of Large Intestine, Via Natural or Artificial Opening Endoscopic, Diagnostic (ICD-10-PCS; principal; 2021-04-03 11:10)
DX: K55.9 Vascular disorder of intestine, unspecified (principal); K62.5 Hemorrhage of anus and rectum; E03.9 Hypothyroidism, unspecified; I10 Essential (primary) hypertension; K57.90 Diverticulosis of intestine, part unspecified, without perforation or abscess without bleeding; K64.8 Other hemorrhoids; E78.5 Hyperlipidemia, unspecified; F41.9 Anxiety disorder, unspecified; K59.00 Constipation, unspecified; D72.829 Elevated white blood cell count, unspecified; K63.5 Polyp of colon
CPT/HCPCS: 36415; 71045-TC-FY; 74177-TC; 80048; 80053; 80061; 81003; 82550; 83036; 83605; 83690; 83735; 84100; 84484; 85025; 85610; 85651; 86850; 86900; 86901; 87045; 87046; 87086; 88305-TC; 93005; 93010; 97116-GP; 97161-GP; 99285-25; C9803; J0131; U0003; U0005

== ENCOUNTER 2021-10-30 05:45 | Day surgery (SDC) | payer OTHER ==
[2021-10-28 12:06] VITALS: BMI 29.7
[2021-10-30 12:39] VITALS: TEMP 97.7
[2021-10-30 13:13] VITALS: PULSE 63
[2021-10-30 13:15] VITALS: BP 152/84
== END 2021-10-30 13:56 | disposition home or self-care (01) ==
LOC: JASU-ENDO 05:45
PROVIDERS: ATTEND Internal Medicine Gastroenterology
PROC: 0DB68ZX Excision of Stomach, Via Natural or Artificial Opening Endoscopic, Diagnostic (ICD-10-PCS; 2021-10-30)
PROC: 0DB98ZX Excision of Duodenum, Via Natural or Artificial Opening Endoscopic, Diagnostic (ICD-10-PCS; principal; 2021-10-30 12:00)
DX: K21.9 Gastro-esophageal reflux disease without esophagitis (principal); K29.50 Unspecified chronic gastritis without bleeding; K44.9 Diaphragmatic hernia without obstruction or gangrene
CPT/HCPCS: 88305-TC; 88342-TC

== ENCOUNTER 2022-06-08 04:43 | Day surgery (SDC) | payer OTHER ==
[2022-06-07 17:58] VITALS: BMI 32.0
[~2022-06-08 04:43] MED LIST: IOHEXOL 180 MG/1 ML ML IJ ONE; LIDOCAINE HCL 1% PRESERVATIVE FREE - 30ML VIAL INF ONE
[2022-06-08 06:34] VITALS: BP 140/84; PULSE 75; RESP 18; TEMP 98
[2022-06-08] MEDS ORDERED: LIDOCAINE HCL/PF 1% SDV 5ML VIAL ONE (07:16)
== END 2022-06-08 09:20 | disposition home or self-care (01) ==
LOC: JASU-SURG 04:43
PROVIDERS: ATTEND Pain Medicine Pain Medicine
DX: Z53.8 Procedure and treatment not carried out for other reasons (principal)

== ENCOUNTER 2022-06-08 09:32 | Emergency (ER) | payer OTHER ==
[2022-06-08 10:00] VITALS: BP 141/97; PULSE 78; RESP 18; TEMP 98.2; BMI 31.2
[2022-06-08] MEDS ORDERED: LISINOPRIL 20 MG TABLET PO ONE (11:30)
[2022-06-08] MEDS ORDERED: LISINOPRIL 10 MG TABLET ONE (12:32)
== END 2022-06-08 12:00 | disposition home or self-care (01) ==
LOC: JER 09:32
DX: I10 Essential (primary) hypertension (principal)
CPT/HCPCS: 99283-25

== ENCOUNTER 2022-06-26 14:04 | Emergency (ER) | payer OTHER ==
[2022-06-26 14:10] VITALS: BP 131/81; PULSE 75; RESP 20; TEMP 98.5; BMI 32.0
[2022-06-26] MEDS ORDERED: ACETAMINOPHEN 500 MG TABLET (FP) PO ONE (14:51)
[2022-06-26] MEDS ORDERED: LIDOCAINE 5% TOPICAL PATCH TP ONE (14:51)
[2022-06-26] MEDS ORDERED: LIDOCAINE 5% TOPICAL PATCH ONE (14:53)
[2022-06-26] MEDS ORDERED: ACETAMINOPHEN 500 MG TABLET (FP) ONE (14:53)
[2022-06-26 16:40] LABS: BASO % 0.6 % (0-2.0); EOS % 1.7 % (0-4.5); HEMATOCRIT 40.6 % (32.4-45.2); HEMOGLOBIN 13.7 GM/dL (10.7-15.3); LYMPH % 29.8 % (8-40); MCH 30.6 pg (25.7-33.7); MCHC 33.8 g/dl (32.0-36.0); MEAN CELL VOLUME 90.4 fl (80-96); MEAN PLT VOLUME 9.1 fl (7.5-11.1); NEUT % 62.9 % (42.8-82.8); RBC 4.49 M/mm3 (3.60-5.2); RDW 13.4 % (11.6-15.6); WHITE BLOOD COUNT 11.7 K/mm3 (4.0-10.0)
[2022-06-26 16:54] LABS: CHLORIDE 107 mmol/L (98-107); SODIUM 140 mmol/L (136-145)
[2022-06-26 16:56] LABS: ALBUMIN 3.7 g/dl (3.4-5.0); CALCIUM 9.6 mg/dL (8.5-10.1)
[2022-06-26 16:57] LABS: CO2 26 mmol/L (21-32); GLUCOSE,RANDOM 109 mg/dL (74-106)
[2022-06-26 16:59] LABS: SGPT/ALT 37 U/L (13-61)
[2022-06-26 17:00] LABS: CREATININE 0.6 mg/dL (0.55-1.3); SGOT/AST 57 U/L (15-37)
[2022-06-26 17:01] LABS: BILIRUBIN,TOTAL 0.5 mg/dL (0.2-1); TOT PROT 7.6 g/dl (6.4-8.2)
[2022-06-26 17:03] LABS: ALK PHOS 79 U/L (45-117)
[2022-06-26 17:08] LABS: ANION GAP 7 MMOL/L (8-16)
[2022-06-26 17:27] LABS: PLATELET COUNT 305 10^3/uL (134-434)
[2022-06-26] MEDS ORDERED: LIDOCAINE PATCH REMOVAL MC ONE (22:00)
== END 2022-06-26 20:45 | disposition home or self-care (01) ==
LOC: JER 14:04
DX: S30.1XXA Contusion of abdominal wall, initial encounter (principal); W19.XXXA Unspecified fall, initial encounter
CPT/HCPCS: 36415; 71101-TC-LT-FY; 71260-TC; 74177-TC; 80053; 84132; 85025; 99285-25; Q9967

== ENCOUNTER 2022-07-13 04:20 | Day surgery (SDC) | payer OTHER ==
[2022-07-06 15:55] VITALS: BMI 32.0
[~2022-07-13 04:20] MED LIST changes: -IOHEXOL 180 MG/1 ML ML IJ ONE; +LIDOCAINE 1% P/F 10 MG/ML VIAL PNB ONE; -LIDOCAINE HCL 1% PRESERVATIVE FREE - 30ML VIAL INF ONE
[2022-07-13] MEDS ORDERED: LIDOCAINE HCL/PF 1% SDV 5ML VIAL ONE (07:26)
[2022-07-13 09:48] VITALS: RESP 18
[2022-07-13] MEDS ORDERED: LIDOCAINE 1% P/F 10 MG/ML VIAL PNB ONE (11:56)
[2022-07-13 12:40] VITALS: BP 134/78; PULSE 66; TEMP 97.5
== END 2022-07-13 13:05 | disposition home or self-care (01) ==
LOC: JASU-SURG 04:20
PROVIDERS: ATTEND Pain Medicine Pain Medicine
PROC: 01HY3MZ Insertion of Neurostimulator Lead into Peripheral Nerve, Percutaneous Approach (ICD-10-PCS; principal; 2022-07-13 11:00)
DX: G89.4 Chronic pain syndrome (principal); M25.511 Pain in right shoulder
CPT/HCPCS: 64555; C1778

== ENCOUNTER 2023-08-05 14:43 | Emergency (ER) | payer OTHER ==
[2023-08-05 15:04] VITALS: BP 190/88; PULSE 95; RESP 22; BMI 29.9
[2023-08-05 15:06] VITALS: TEMP 100.5
[2023-08-05] MEDS ORDERED: ACETAMINOPHEN 1000 MG/100 ML BAG IVPB ONE (15:37)
[2023-08-05] MEDS ORDERED: SODIUM CHLORIDE 500 ML IV STA (15:37)
[2023-08-05] MEDS ORDERED: ONDANSETRON 4 MG/2 ML VIAL IVPUSH ONE (15:37)
[2023-08-05] MEDS ORDERED: ONDANSETRON 4 MG/2 ML VIAL ONE (16:05)
[2023-08-05] MEDS ORDERED: ACETAMINOPHEN INJECTION 100 ML IVPB ONE (16:05)
[2023-08-05 16:50] LABS: BASO % 0.4 % (0-2.0); HEMATOCRIT 41.3 % (32.4-45.2); HEMOGLOBIN 14.1 GM/dL (10.7-15.3); LYMPH % 35.4 % (8-40); MCH 30.3 pg (25.7-33.7); MCHC 34.1 g/dl (32.0-36.0); MEAN CELL VOLUME 88.8 fl (80-96); MEAN PLT VOLUME 8.3 fl (7.5-11.1); MONO % 6.8 % (3.8-10.2); NEUT % 57.4 % (42.8-82.8); PLATELET COUNT 209 10^3/uL (134-434); RBC 4.65 M/mm3 (3.60-5.2); RDW 13.5 % (11.6-15.6); WHITE BLOOD COUNT 4.4 K/mm3 (4.0-10.0)
[2023-08-05 16:58] LABS: INR 1.1 (0.83-1.09); PROTHROMBIN TIME (PATIENT) 12.8 SEC (9.7-13.0)
[2023-08-05 17:01] LABS: ACTIVATED PTT 31.6 SECONDS (25.2-36.5)
[2023-08-05 17:48] LABS: ALBUMIN 3.6 g/dl (3.4-5.0); BILIRUBIN,TOTAL 0.3 mg/dL (0.2-1); BLOOD UREA NITROGEN 10.3 mg/dL (7-18); CALCIUM 9.4 mg/dL (8.5-10.1); CREATININE 0.5 mg/dL (0.55-1.3); POTASSIUM 4.2 mmol/L (3.5-5.1); TOT PROT 7.5 g/dl (6.4-8.2)
[2023-08-05 18:39] LABS: EPI CELLS 3 /uL (0-25.1); HYALINE CASTS 0 /uL (0-3.1); PH,URINE 5.5 (5.0-8.0); URINE APPEARANCE CLEAR; URINE BACTERIA 4 /uL (0-1359); URINE BILIRUBIN NEGATIVE (NEGATIVE); URINE COLOR YELLOW; URINE GLUCOSE (UA) NEGATIVE (NEGATIVE); URINE KETONE 1+ (NEGATIVE); URINE LEUK ESTERASE NEGATIVE (NEGATIVE); URINE NITRITE NEGATIVE (NEGATIVE); URINE PROTEIN NEGATIVE (NEGATIVE); URINE RBC 8 /uL (0-23.9); URINE UROBILINOGEN 0.2 mg/dL (0.2-1.0); URINE WBC 3 /uL (0-25.8)
== END 2023-08-05 20:11 | disposition home or self-care (01) ==
LOC: JER 14:43
PROC: 3E033NZ Introduction of Analgesics, Hypnotics, Sedatives into Peripheral Vein, Percutaneous Approach (ICD-10-PCS; principal; 2023-08-05)
PROC: 3E033GC Introduction of Other Therapeutic Substance into Peripheral Vein, Percutaneous Approach (ICD-10-PCS; 2023-08-05)
PROC: 3E0337Z Introduction of Electrolytic and Water Balance Substance into Peripheral Vein, Percutaneous Approach (ICD-10-PCS; 2023-08-05)
DX: R10.9 Unspecified abdominal pain (principal); R05.9 Cough, unspecified; J11.1 Influenza due to unidentified influenza virus with other respiratory manifestations; R11.2 Nausea with vomiting, unspecified; R19.7 Diarrhea, unspecified; Z20.822 Contact with and (suspected) exposure to COVID-19
CPT/HCPCS: 0241U-QW; 36415; 71045-TC-FY; 80053; 81003; 83690; 84484; 85025; 85610; 85730; 87086; 93005; 93010; 96361; 96374; 96375; 99285-25

== ENCOUNTER 2024-06-05 16:38 | Emergency (ER) | payer OTHER ==
[2024-06-05 16:49] VITALS: BP 135/83; PULSE 79; RESP 18; TEMP 98.7; BMI 29.8
== END 2024-06-05 18:34 | disposition home or self-care (01) ==
LOC: JERFT 16:38 → JER 16:38 → JERFT 18:34
DX: H57.89 Other specified disorders of eye and adnexa (principal)
CPT/HCPCS: 99283-25

== ENCOUNTER 2024-06-20 13:47 | Emergency (ER) | payer OTHER ==
[2024-06-20 13:58] VITALS: BP 183/90; PULSE 73; RESP 18; TEMP 98.8; BMI 27.9
[2024-06-20] MEDS ORDERED: PANTOPRAZOLE 40 MG TABLET PO ONE (15:58)
[2024-06-20] MEDS ORDERED: MAG HYDROX/AL HYDROX/SIMETH 30 ML UNIT-DOSE CUP ONE (15:59)
[2024-06-20] MEDS: FAMOTIDINE 20 MG/50 ML IVPB 20 MG/50 ML MG IVPB ONE (16:32)
[2024-06-20] MEDS: MAG HYDROX/AL HYDROX/SIMETH 30 ML UNIT-DOSE CUP PO ONE (16:32)
[2024-06-20] MEDS: PANTOPRAZOLE 40 MG TABLET PO ONE (16:32)
[2024-06-20 16:54] LABS: BASO % 0.2 % (0-2.0); EOS % 0.1 % (0-4.5); HEMATOCRIT 43.2 % (32.4-45.2); HEMOGLOBIN 14.1 GM/dL (10.7-15.3); LYMPH % 36.2 % (8-40); MCH 28.9 pg (25.7-33.7); MCHC 32.6 g/dl (32.0-36.0); MEAN CELL VOLUME 88.8 fl (80-96); MONO % 5.7 % (3.8-10.2); NEUT % 57.8 % (42.8-82.8); PLATELET COUNT 294 10^3/uL (134-434); RBC 4.87 M/mm3 (3.60-5.2); RDW 13.9 % (11.6-15.6); WHITE BLOOD COUNT 8.6 K/mm3 (4.0-10.0)
[2024-06-20 17:14] LABS: INR 1.02 (0.83-1.09); PROTHROMBIN TIME (PATIENT) 11.5 SEC (9.7-13.0)
[2024-06-20 17:17] LABS: ACTIVATED PTT 30.6 SECONDS (25.2-36.5)
[2024-06-20 17:27] LABS: POTASSIUM 4.4 mmol/L (3.5-5.1)
[2024-06-20 17:30] LABS: ALBUMIN 4.3 g/dl (3.4-5.0); BLOOD UREA NITROGEN 11.4 mg/dL (7-18); CALCIUM 9.9 mg/dL (8.5-10.1)
[2024-06-20 17:33] LABS: CREATININE 0.6 mg/dL (0.55-1.3)
[2024-06-20 17:34] LABS: BILIRUBIN,TOTAL 0.6 mg/dL (0.2-1)
[2024-06-20 17:35] LABS: TOT PROT 7.7 g/dl (6.4-8.2)
[2024-06-20 18:26] LABS: HIV INTERPRETATION NEGATIVE (NEGATIVE)
[2024-06-20] MEDS ORDERED: PANTOPRAZOLE SODIUM 40 MG VIAL ONE (18:28)
== END 2024-06-20 19:23 | disposition home or self-care (01) ==
LOC: JER 13:47
PROC: 3E033GC Introduction of Other Therapeutic Substance into Peripheral Vein, Percutaneous Approach (ICD-10-PCS; principal; 2024-06-20)
DX: K29.70 Gastritis, unspecified, without bleeding (principal); R10.13 Epigastric pain; R11.0 Nausea
CPT/HCPCS: 36415; 71045-TC-FY; 80053; 83690; 84484; 85025; 85610; 85730; 86803; 86850; 86900; 86901; 87389; 93005; 93010; 99285-25

== ENCOUNTER 2024-06-21 13:44 | Emergency (ER) | payer OTHER ==
[2024-06-21 13:52] VITALS: BMI 26.6
[2024-06-21] MEDS: SODIUM PHOSPHATE/NA BIPHOS 133 ML ENEMA PR ONE (15:25)
[2024-06-21 17:06] VITALS: BP 158/97; PULSE 86; RESP 18; TEMP 98.2
== END 2024-06-21 19:01 | disposition home or self-care (01) ==
LOC: JER 13:44
DX: K59.00 Constipation, unspecified (principal); R10.13 Epigastric pain
CPT/HCPCS: 74177-TC; 99285-25; Q9967